=== PATIENT | female | born 2005 | race Caucasian/White ===

== ENCOUNTER 2024-10-26 09:53 | Outpatient (AMB) | payer OTHER, SELFPAY ==
--- NOTE | 2024-10-26 10:08 | MHC.PC.OV ---
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 Intake Note: New pt establish care Industrial Safety Engineer Required: No Is last menstrual period known: Yes Last menstrual period: 10/26/24 Post menopausal: No Patient : No Allergies No Known Allergies Allergy (Verified 10/26/24 10:13) Medication List - Last Reconciled 10/26/24 by Ramirez Jurado MD amitriptyline 20 mg PO DAILY lamotrigine 150 mg PO DAILY levonorgestrel (Mirena) intrauterine norethindrone ac-eth estradiol 1-20 mg-mcg (Aurovela) 1 tab PO DAILY Tobacco use date assessed: 10/26/24 Dental Screening Dental Screen Date: 10/26/24 Did you have a dental visit in the last 12 months?: Yes Did you have a dental problem in the last 6 months where you did not have access to dental care?: No Was dental information given to patient?: No HPI 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 ?? Prior PCP:?Sheri Wallace at [facility] in [place] Last office visit/CPE:? 2020 Acute issue(s):? IBS sxs. Needs New GI specialist (Had [facility]). ?? PMHx:? IBS, Bipolar disorder Anxiety/Depression. Has PSY. & Therapist. Has STAGE SETTINGS PAINTER through [facility] (Paty Walker) SurgHx:?Colonoscopy FHx:? Dad: HLD. Mom: Breast CA. Brother & Sister w/ Asthma. Brother: PTSD, Schizophrenia SocHx:? Nonsmoker. EtOH None. MJ Daily. No other Drugs. HPI Comments History of Present Illness Details Documentation assistance for Ramirez Jurado MD, was provided by Dm Gannon,? Tub Chucker on 10/26/2024 at 10:37 AM EST. I, Dr. Jurado, have read, observed, and verified documentation. ?? PFSH Medical History (Updated 10/26/24 @ 10:47 by Dm Gannon) Bipolar 1 disorder Depression Anxiety IBS (irritable bowel syndrome) Family History (Updated 10/26/24 @ 10:22 by Aliyah Weldon [facility]) Brother FH: mental illness Asthma Sister Asthma Father High blood cholesterol Alcohol abuse Paternal Grandmother High blood cholesterol Paternal Grandfather Pacemaker Mother Breast cancer Social History Housing: House Patient Tobacco Use Status: Never used Tobacco e-Cigarette/Vaping Use: Never Used service: No Current occupational status: employed Current occupation: warehouse clerk Cognitive needs: No Hearing needs: No Vision needs: Yes Female Reproductive History Menstrual Date of last menstrual period: 10/26/24 Questionnaire PHQ-9 Over the last 2 weeks, how often have you been bothered by any of the following problems? 1. Little interest or pleasure in doing things: several days 2. Feeling down, depressed, or hopeless: several days 3. Trouble falling or staying asleep, or sleeping too much: several days 4. Feeling tired or having little energy: several days 5. Poor appetite or overeating: several days 6. Feeling bad about yourself - or that you are a failure or have let yourself or your family down: not at all 7. Trouble concentrating on things, such as reading the newspaper or watching television: not at all 8. Moving or speaking so slowly that other people could have noticed. Or the opposite - being so fidgety or restless that you have been moving around a lot more than usual: not at all 9. Thoughts that you would be better off or of hurting yourself in some way: not at all Total score: 5 Depression Screening Interpretation: Positive Depression Screening Follow-up: In treatment Depression Screening Done: Yes 58256 - PHQ-9 Billing: Yes Source: Developed by Drs. Matt Torres, Ladi Bertrand, Rm Dyer and colleagues, with an educational tyler from [employer]. Thrive Questionnaire Date Thrive assessed: 10/26/24 I am a: Patient What is your living situation today?: I have a steady place to live Within the past 12 months, did the food you bought not last and you didn't have the money to get more?: Never true Within the past 12 months, did you worry whether your food would run out before you got money to buy more?: Never true Do you have trouble paying for medicines?: No Do you have trouble getting transportation to medical appointments?: No Do you have trouble paying your heating and electricity bill?: No Do you have trouble taking care of your child, family member or friend?: No Do you have trouble with day-to-day activities such as bathing, preparing meals, shopping, managing finances, etc.?: No Are you currently unemployed and looking for a job?: No Are you interested in more education?: I choose not to answer this question Please select the resources that you would like help with: None Currently or been in a relationship where the following occur: I choose not to answer THRIVE Score: 0 AUDIT C Alcohol Use Questionnaire (AUDIT-C) 1. How often do you have a drink containing alcohol?: Monthly or less 2. How many drinks containing alcohol do you have on a typical day when you are drinking?: 1 or 2 3. How often do you have six or more drinks on one occasion?: Never Total Score: 1 Score Reviewed/Action Taken: Yes BRYAN-7 AMB Questionnaire BRYAN-7 Date BRYAN - 7 assessed: 10/26/24 Feeling nervous, anxious, or on edge: 1 = Several days Not being able to stop or control worryin = Several days Worrying too much about different things: 1 = Several days Trouble relaxin = Not at all Being so restless that it is hard to sit still: 0 = Not at all Becoming easily annoyed or irritable: 0 = Not at all Feeling afraid as if something awful might happen: 0 = Not at all Total BRYAN-7 score (0-4 normal; 5-9 mild; 10-14 moderate; 15-21 severe): 3 Source: Developed by Drs. Matt Torres, Ladi Bertrand, Rm Dyer and colleagues, with an educational tyler from [employer]. BRYAN-7 Assessment Billing BRYAN-7 Assessment Tool: BRYAN-7 Assessment 31129 Review of Systems Const Denies chills, Denies fatigue, Denies fever(s), Denies headache(s) and Denies weakness ENT Denies dizziness and Denies headache(s) Card Denies chest pain, Denies lightheadedness, Denies dyspnea and Denies other (Palpitations) Resp Denies cough, Denies dyspnea, Denies wheezing and Denies other ( shortness of breath) Musc Denies numbness and Denies tingling Neuro Denies dizziness, Denies headache(s), Denies numbness, Denies tingling, Denies paresthesias and Denies weakness Psych Denies anxiety and Denies depression Endo Denies fatigue Aller/Immun Denies wheezing Physical exam (Primary Care) Vital Signs: Last Vital Signs Temp 97.9 F 10/26/24 10:22 Pulse 69 10/26/24 10:22 Resp 14 10/26/24 10:22 BP 130/80 10/26/24 10:22 Pulse Ox 98 10/26/24 10:22 Oxygen Delivery Method Room Air 10/26/24 10:22 BMI result Body Mass Index 40.9 Tobacco/Smoking Status: Tobacco use Status Tobacco use date assessed 10/26/24 10/26/24 10:23 Patient Tobacco Use Status Never used Tobacco 10/26/24 10:23 e-Cigarette/Vaping Use Never Used 10/26/24 10:23 PHQ-9: PHQ-9 Score PHQ-9: Total score 5 10/26/24 10:23 Depression Screening Interpretation: Positive Depression Screening Follow-up: In treatment Thrive Assessment: Date of Thrive Assessment Date Thrive assessed 10/26/24 10/26/24 10:12 Currently or been in a relationship where the following occur: I choose not to answer Const General: no acute distress and well developed Nutritional Appearance: obese morbidly obese Orientation/consciousness: patient oriented x3 HENMT Head: Yes normocephalic and Yes atraumatic Eyes General: appearance normal, both eyes and all related structures Pupils: Equal, round and reactive pupils present EOM: EOMs intact bilaterally Resp Effort & Inspection: normal respiratory effort Auscultation: clear to auscultation bilaterally Cardio Rate: regular rate Rhythm: regular rhythm Heart sounds: S1 normal heart sound present, S2 normal heart sound present, no gallops, no murmurs and no rubs Neuro General: patient oriented x3 and gait normal Cranial nerves: Yes Equal, round and reactive pupils present Psych Affect: normal affect Coding Level of Care Code New Pt Level 3 (04886) Diagnoses Bipolar 1 disorder F31.9 Depression with anxiety F41.8 IBS (irritable bowel syndrome) K58.9 Screening for STD (sexually transmitted disease) Z11.3 Laboratory exam ordered as part of routine general medical examination Z00.00 Additional Codes BRYAN-7 Assessment Billing - BRYAN-7 Assessment Tool: BRYAN-7 Assessment 02583 ([id number]) PHQ-9 - 13970 - PHQ-9 Billing: Yes ([id number]) Assessment & Plan Assessment & Plan (1) Bipolar 1 disorder: Code(s): F31.9 - Bipolar disorder, unspecified Category: Medical Plan: Patient?has?a?psychiatrist?and?therapist. She?notes?that?she?is?rather?stable?on?lamotrigine?and?will?continue?this.??Also?on?amitriptyline?though?this?is?primarily?for?her?IBS?symptoms. Continue?current?medications?and?follow-up?with?psychiatrist?and?therapist?as?recommended (2) Depression with anxiety: Code(s): F41.8 - Other specified anxiety disorders Category: Medical Plan: As?above (3) IBS (irritable bowel syndrome): Code(s): K58.9 - Irritable bowel syndrome, unspecified Category: Medical Plan: History?of?IBS?and?patient?has?been?taking?amitriptyline. She?would?like?a?referral?to?a?new?couture dressmaker?as?she?had?been?seeing?a?pediatric?specialist?at?[facility]?previously. Referred?to?[facility]?gastroenterology Patient requests?that?I?cover?amitriptyline?until?she?has?not?use?specialists.??She?has?just?received?a?new?prescription?but?I?can?cover?this?medication?when?she?needs?her?next?refill (4) Screening for STD (sexually transmitted disease): Code(s): Z11.3 - Encounter for screening for infections with a predominantly sexual mode of transmission Category: Medical Plan: Labs?ordered (5) Laboratory exam ordered as part of routine general medical examination: Code(s): Z00.00 - Encounter for general adult medical examination without abnormal findings Category: Medical Plan: Check?labs Orders: Orders Comprehensive [place]. Panel Fast Today Z00.00 - Encounter for general adult medical examination without abnormal findings Microalbumin, Random (w Creat) Today I10 - Essential (primary) hypertension Lipid Panel Today Z00.00 - Encounter for general adult medical examination without abnormal findings Vitamin B12 and Folate Today E53.8 - Deficiency of other specified B group vitamins Vitamin D 25-OH Total Today E55.9 - Vitamin D deficiency, unspecified HIV Ab/Ag Today Z11.3 - Encounter for screening for infections with a predominantly sexual mode of transmission Syphilis Screen Today Z11.3 - Encounter for screening for infections with a predominantly sexual mode of transmission Complete Blood Count Auto Diff Today Z00.00 - Encounter for general adult medical examination without abnormal findings TSH reflex Free T4 Today Z00.00 - Encounter for general adult medical examination without abnormal findings UA and rflx microscopic Today Z00.00 - Encounter for general adult medical examination without abnormal findings CT NG by PCR Today Z11.3 - Encounter for screening for infections with a predominantly sexual mode of transmission Hepatitis B,C Profile Today Z11.3 - Encounter for screening for infections with a predominantly sexual mode of transmission
[2024-10-26 10:22] VITALS: BP 130/80; PULSE 69; RESP 14; TEMP 36.6; O2SAT 98; BMI 40.9
--- OUTSIDE RECORDS SUMMARY | 2024-10-26 10:38 | XMS_ITS | Encounter Summary ---
Author Organization [facility] Address [address] [place] [id number] Phone Care Team Providers Care Pot Puller Name Role Phone Isabelle Wallace NP Primary Care Provider [phone] Reason for Visit * Reason Comments Med Refill Encounter Details Date Type Department Care Team (Late st Contact Info) Description 12/18/2018 [facility]ill [facility] [address] [place] [id number] Isabelle Wallace NP [address] [place] [address] Dysmenorrhea in adolescent Social History Tobacco Use Types Packs/Day Years Used Date Smoking Tobacco: Never Assessed Comments Unknown Sex and Gender Information Value Date Recorded Sex Assigned at Female 10/09/2019 3:05 PM EST Legal Sex Female 6:26 PM EDT Gender Identity Female 10/09/2019 3:05 PM EST Sexual Orientation Straight 10/09/2019 3: 05 PM EST documented as of this encounter Plan of Treatment Not on file documented as of this encounter Visit Diagnoses Diagnosis Dysmenorrhea in adolescent documented in this encounter Care Teams Pot Puller Relationship Specialty Start Date End Date Isabelle Wallace NP [address] [place] [address] PCP - General Pediatrics 09/22/18 07/05/24 documented as of this encounter
--- OUTSIDE RECORDS SUMMARY | 2024-10-26 10:38 | XMS_ITS | Encounter Summary ---
Author Organization [facility] Address [address] [place] [id number] Phone Care Team Providers Care Microsoft Crm Developer Name Role Phone Isabelle Wallace NP Primary Care Provider [phone] Encounter Details Date Type Department Care Team (Late st Contact Info) Description 01/25/2018 Conversion [facility]counter [facility] [address] [address] Dori Lazaro MD [address] [place] [address] Social History Tobacco Use Types Packs/Day Years [...] documented as of this encounter Visit Diagnoses Not on filedocumented in this encounter Care Teams Microsoft Crm Developer Relationship Specialty Start Date End Date Isabelle Wallace NP [address] [place] [id number] PCP - General Pediatrics 09/22/18 07/05/24 documented as of this encounter
--- OUTSIDE RECORDS SUMMARY | 2024-10-26 10:38 | XMS_ITS | Clinical Summary ---
Author Organization [facility] Address [address] [place] [id number] Phone Care Team Providers Care Stockroom Worker Name Role Phone Unavailable Primary Care Provider Unavailabl e Allergies No known active allergies Medications Levonorgestrel (MIRENA, 52 MG, IU) by Intrauterine route. Active dicyclomine 10 MG capsule 10 mg 2 (two) times a day. 2 Active amitriptyline 10 MG tablet TAKE 1 TABLET BY MOUTH EVERYDAY AT BEDTIME 2 Active citalopram 20 MG tabletIndication s:Anxiety and depression Take 1 tablet (20 mg total) by mouth every morning. 90 tablet 2 Active Additional Information Patient not taking.Reported on 07/22/2022 traZODone 50 MG tabletIndication s:Sleep difficulties TAKE 1 TABLET BY MOUTH EVERY DAY AT NIGHT 90 tablet 3 Active hydrOXYzine 25 MG tabletIndication s:Anxiety and depression TAKE 1 TABLET BY MOUTH EVERY DAY AT NIGHT 30 tablet 3 Active LAMOTRIGINE PO Take by mouth. Active Active Problems Problem Noted Date Diagnosed Date Chronic headaches 01/01/2023 Marijuana use 07/24/2022 Nicotine dependence 07/24/2022 Wears glasses 07/22/2022 Overview (07/22/2022): Goes to [employer] IBS (irritable bowel syndrome) 12/14/2021 Assessment & Plan (07/22/2022 3:47 PM EST): Colonoscopy. H pylori. Disrupted sleep-wake cycle 11/02/2021 Assessment & Plan (12/15/2021 2:29 PM EDT): Will discuss with CARLINE safety of increasing trazodone given that she is not on multiple serotonergic agents. Assessment & Plan (11/02/2021 11:25 AM EST): Will discuss with CARLINE whether it would be safe to add trazodone to Celexa. Diarrhea 08/10/2021 Overview (01/01/2023): GI Sep 2021 - likely IBS-D, fecal calprotectin, if elevated will need scope 12/29:seen in follow up by GI. Colonoscopy, h pylori. Treated. Urea breath test as test of cure. Calprotectn 27. Amitriptiline 20 mg nightly. Fodmap/ibs diet. F/u 6 months Assessment & Plan (10/03/2021 7:22 PM EST): Started dicyclomine. Needs to schedule f/u with drip box tender and collect specimen for fecal calprotectin. Assessment & Plan (09/05/2021 7:04 PM EST): Asked our office to reach out again to GI regarding an appt. Assessment & Plan (08/10/2021 5:01 PM EST): Will obtain labs to look for inflammatory cause. F/u with results once received, likely will refer to GI. Vascular thoracic outlet syndrome 03/31/2021 Overview (03/31/2021): Right - [facility] referred to PT 03/28 Assessment & Plan (07/24/2022 8:40 AM EST): Ongoing sx. I advised pt attend [facility] walk in clinic for further evaluation Anxiety and depression 11/12/2020 Assessment & Plan (12/15/2021 2:29 PM EDT): Will make referral to [facility] for medication management. Assessment & Plan (11/02/2021 11:24 AM EST): Continue Celexa, and continue working on locating a therapist. Will f/u in approx 4 weeks. Assessment & Plan (10/03/2021 7:23 PM EST): Tolerated the cross taper, not significantly worse coming off of the sertraline. Will increase citalopram to 20 mg and f/u in 4 weeks, sooner with concerns. Sarah will continue to look for a therapist. Assessment & Plan (09/05/2021 7:04 PM EST): Not experiencing much benefit from sertraline despite titrating up to 125 mg. Decided to cross taper off sertraline and start citalopram. First week to take 100 mg sertraline (1 tab) and 5 mg citalopram (1/2 tab). Second week to take 50 mg sertraline (1/2 tab) and 10 mg citalopram (1 tab). Will f/u for med check in 3 weeks, sooner with concerns. May try 50 mg of hydroxyzine for symptoms. Assessment & Plan (08/13/2021 1:03 PM EST): Will not adjust meds at this point - discussed with Sarah I don't believe there is any evidence that any of the SSRIs are more likely to gain weight than others, but will consult the literature and f/u with her when I f/u with lab results. Assessment & Plan (06/11/2021 11:40 AM EDT): Sarah has a lot going on personally at the moment with her family, and also had a period this month, both of which may be contributing to her feeling more emotional. Overall continues to benefit from sertraline. We agree to her meeting with Angelica Walker tomorrow, keeping the dose at 100 mg and following up with a med check in 1 month, she can reach out sooner with concerns. Assessment & Plan (04/27/2021 12:56 PM EDT): Continues to do well on sertraline 100 mg. Will keep at this dose for now and f/u in 4 weeks. Discussed panic attacks would also be an appropriate time to try the hydroxyzine. Assessment & Plan (04/12/2021 4:26 PM EDT): Sarah looked great today. I would like her to continue the sertraline at 100 mg for another 2 weeks, and then will reevaluate whether a further increase is needed. Given the nighttime anxiety and difficulty sleeping, we can trial hydroxyzine 25 mg prn at night. My goal is not for her to use this as a sleep aid, but it may have that added benefit if it helps with the anxiety and has the side effect of making her tired. Assessment & Plan (03/29/2021 2:53 PM EDT): Will plan to increase sertraline to 100 mg. I am glad Sarah is experiencing some benefit for her anxiety. It does not seem that the sertraline is making her depression worse, but if she does find a correlation of worsening depression with increasing the sertraline, she will let me know and we will consider trying a different medication. F/u planned for 2 weeks. Also discussed sleep hygiene, avoiding screens/phone before bed and making a bedtime routine. Assessment & Plan (02/22/2021 12:08 PM EDT): Some initial improvement in both mood and anxiety. Will continue sertraline at 25 mg for another week, then increase to 50 mg. Will f/u after she has been on 50 mg for 2 weeks, sooner with concerns. Assessment & Plan (02/11/2021 2:42 PM EDT): Will start sertraline 12.5 mg x 1 week, then if tolerated increase to 25 mg. Reviewed black box warning for increased suicidal thought in children and adolescents with SSRI use; if this occurs or any worsening of symptoms, agrees to notify me. Continue therapy with Angelica Walker, and f/u with me in 2 weeks for med check. As nightmares are not excessive/intrusive at this point will not start prazosin, but can revisit if this becomes a concern for Sarah. Assessment & Plan (11/12/2020 12:54 PM EST): Sarah says she has expressed to parents several time her desire to see a therapist and is told they will look into it. I reviewed availability of Angelica Walker in our office - she was hesitant at first due to privacy concerns and I reviewed that confidentiality with Angelica is no different than with any other therapist. I suggested it might be helpful to leave the office today already having made an appointment with Angelica as she has not been able to establish with an outpatient despite her desire. She agrees and we scheduled an appointment. Family disruption due to divorce or legal separa tion 10/09/2019 Assessment & Plan (10/09/2019 3:05 PM EST): Encouraged Sarah to consider talking to someone about the changes and stress. Made her and dad aware of availability of KENA Ireland here in our office. Dysmenorrhea in adolescent 09/22/2018 Assessment & Plan (11/12/2020 12:54 PM EST): Doing well with IUD. Assessment & Plan (10/09/2019 3:06 PM EST): Improved with Nexplanon. Assessment & Plan (09/22/2018 12:46 PM EST): It is not clear to me whether Sarah has a history of migraine with aura. She describes some lines in her vision, blurred vision, and tingling in arms with her headaches. Out of caution, will start on progestin-only pill but asked Sarah and dad to discuss with neuro if they feel she would be a candidate for an estrogen-containing pill. If so and symptoms are not well controlled, will consider change to a combined OCP. Reviewed how to take, will f/u in 3 months, sooner with concerns. Chiari I malformation 11/26/2017 Overview (09/22/2018): mild, likely incidental finding on MRI 11/23 Intractable migraine without aura and with status migrainosus 11/26/2017 Overview (09/22/2018): 05/24 - ophthalmology exam for ongoing headaches; benign exam, cycloplegic refraction greatly different from current rx, large difference between eyes; difference is so great that it may be an explanation for headaches 11/23 [facility] admit migraine. 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 Pseudotumor less likely but remains on differential, oupt dilated exam with Dr. Nix negative for papilledema. F/u with outpt neuro at [facility], started on Topamax. Assessment & Plan (10/09/2019 3:04 PM EST): Follow up with neuro as planned. Assessment & Plan (09/22/2018 12:44 PM EST): Family will call [facility] neuro for f/u. I told dad it would be appropriate to ask if the Topamax could be increased prior to the appointment. Morbid obesity with BMI of 40.0-44.9, adult 12/2017 Overview (09/22/2018): Endocrinology 11/22 elevated triglycerides and insulin secondary to weight and poor diet. Recommended referral to weight management program which she declined. F/u with endo prn only Assessment & Plan (10/09/2019 3:03 PM EST): Down 20 lbs since last year, more active and eating a healthier diet. Keep up the good work! Assessment & Plan (09/22/2018 12:44 PM EST): Weight down 22 lbs since last November. Encouraged Sarah to work in increasing physical activity and eating more whole foods (less processed and carbs) as I think this would go a long way in helping her feel better with her headaches and overall. Hyperinsulinemia 09/11/2017 Mixed hyperlipidemia 09/11/2017 Resolved Problems Problem Noted Date Diagnosed Date Resolved Date Neck pain 11/26/2017 11/12/2020 Overview (09/22/2018): 03/24 - [facility] - completed PT. Due to chronic back and neck pain, will refer to rheumatology. Recommend referral to neuro for chronic RAYGOZA. 05/25 - Rheumatology - neck pain and RAYGOZA possibly post-concussive. Spondyloarthritis or primary pain disorder need to be in differential. Labs. Rx for diclofenac and cyclobenzaprine. Continue PT, f/u in 6 wks. Encounters Date Type Department Care Team Description 07/01/2024 2:27 PM EDT - 08/07/2024 4:45 AM EST Hospital Encounter [facility] - Patient Ping Discharge Disposition: ED Dismiss - Never Arrived from Last 3 Months Immunizations Immunization Administration Dates Next Due DTaP 04/21/2008, 4,2003,05/17,2003 Hep A, ped/adol 09/22/2018,09/11/2017 Hep B, ped/adol 2003,2003,2003 Hib (PRP-T) 05/09/2004,2003,2003 IPV 04/21/2008, 4,2003,03/16 Influenza, injectable, quadrivalent 07/27/2014,0 05/20/2012,04/30/2010 Influenza, injectable, quadr ivalent, preservative free 07/22/2022,11/09/2020,10/08/2019,07/06,05/01/2011 Influenza, injectable, triva lent, preservative free 10/10/2004,06/29/2004 Influenza, intranasal, quadrivalent 09/22/2018,1 10/09/2014 MMR 01/27/2004 MMRV 01/14/2007 Meningococcal Conj (Menactra) MCV4P 10/08/2019,1 09/26/2013 Pneumococcal Conjugate 02/20/2005,2002,2003,03/16 Tdap 07/27/2014 Varicella 04/21/2008,01/27/2004 Family History Medical History Relation Name Comments Asthma Brother Jose Hyperlipidemia Father Hyperlipidemia Father's Brother No Known Problems Maternal Grandmother No Known Problems Mother Coronary artery disease Paternal Grandfather Hyperlipidemia Paternal Grandfather Aortic aneurysm Paternal Grandmother Hyperlipidemia Paternal Grandmother Relation Name Status Comments Brother Jose Alive Father Alive Father's Brother Alive diagnosed w ith Hypercholesteremia Maternal Grandfather Alive Brain t umor Maternal Grandmother Alive Mother Alive healthy age: 48 Paternal Grandfather Alive Paternal Grandmother (Age 56) Sister Jourdan Alive Social History Tobacco Use Types Packs/Day Years Used Date Smoking Tobacco: Never Assessed Hunger/Food Answer Date Recorded In the last 12 months, did y ou or your family ever eat less than you felt you should because there wasn't enough money for food? No 07/20/2022 Stable Housing Answer Date Recorded Are you worried that in the next 2 months you may not have stable housing? No 07/20/2022 Transportation Concerns Answer Date Rec orded In the last 12 months, have you or your family ever had to go without healthcare because you didn't have a way to get there? No 07/20/2022 Hazards in Home Answer Date Recorded Think about the place you li ve. Do you have problems with any of the following? Pests (mice or roaches), mold, no/not working smoke detectors, water leaks, no window guards. No 2021 Financing Utilities Answer Date Recorde d In the last 12 months, has t he electric, gas, oil, or water company threatened to shut off your services in your home? No 07/20/2022 Safety at Home Answer Date Recorded Are you or your family worried about feeling saf e in your home? No 07/20/2022 Outside Support Answer Date Recorded Do you feel that you need mo re support from other people or programs to help you care for yourself or your family? No 07/20/2022 Understanding Health Concerns Answer Da te Recorded Do you need help understandi ng your or your child's healthcare needs (diagnosis, medications, plan, etc.)? No 07/20/2022 Financing Health Concerns Answer Date R ecorded In the last 12 months, was t here a time when your child needed to see a doctor or get medications or supplies but could not because of cost? No 07/20/2022 Missing School or Work Answer Date Jorge rded Did you or your child miss s chool or work because of a health problem that could have been avoided? No 07/20/2022 Comments No Sex and Gender Information Value Date Recorded Sex Assigned at Female 10/09/2019 3:05 PM EST Legal Sex Female 6:26 PM EDT Gender Identity Female 10/09/2019 3:05 PM EST Sexual Orientation Straight 10/09/2019 3: 05 PM EST Last Filed Vital Signs Vital Sign Reading Time Taken Comments Blood Pressure 138/78 07/22/2022 3:27 PM EST Pulse 65 11/26/2021 6:20 PM EDT Temperature 37.2 ??C (99 ??F) 12/11/2023 1:41 PM EDT Respiratory Rate - - Oxygen Saturation 97% 11/26/2021 6:20 PM EDT Inhaled Oxygen Concentration - - Weight 117 kg (257 lb 3.2 oz) 12/11/2023 1:41 PM EDT Height 168 cm (5' 6.14 ) 07/22/2022 3:27 PM EST Body Mass Index 41.34 07/22/2022 3:27 PM EST Plan of Treatment Health Maintenance Due Date Last Done Comments HPV Vaccines (1 - 3-dose series) 2018 Men B Vaccine (1 of 2 - Standard) 2019 Influenza Vaccines (#1) 2024 07/22/20, 11/09/2020, 10/08/2019, Additional history exists COVID-19 Vaccine (3 - 2023-2 5 season) 2024 01/19/2021, 12/29/2020 DTaP,Tdap,and Td Vaccines (7 - Td or Tdap) 07/27/2024 07/27/2014, 04/21/2008, 05/09/2004, Additional history exists Hepatitis B Vaccines Completed 2003, 2003, 2003 HIB Vaccines Completed 05/09/2004, 03/2003, 2003 Pneumococcal Vaccine Completed 02/20/2005, 2003, 2003, Additional history exists MMR Vaccines Completed 01/14/2007, 01/27/2004 IPV Vaccines Completed 04/21/2008, 10/09, 2003, Additional history exists Varicella Vaccines Completed 04/21/2008, 0 01/14/2007, 01/27/2004 Hepatitis A Vaccines Completed 09/22/2018, 09/11/19 18 Meningococcal Vaccine Completed 10/08/2019, 014 Procedures * Due to [place] [employer] law, this organization might not be sharing sensitive test results. Procedure Name Priority Date/Time Associated Diagnosis Comments CHLAMYDIA AND GONORRHEA, AMPLIFIED Routine 07/22/2022 4:45 PM EST Well adult exam from Last 3 Months or Most Recently Relevant to Health Maintenance Results * Due to [facility] law, this organization might not be sharing sensitive test results. * Chlamydia and Gonorrhoea, Amplified (07/22/2022 4:45 PM EST) Chlamydia Trachomatis, DNA Probe NEGATIVE (NEG) [facility] Comment: No Chlamydia Trachomatis RNA detected in this patient's sample ? (REFERENCE RANGE/NORMAL VALUE: NOT DETECTED) ? Note: This test uses api product manager- mediated amplification method to detect rRNA from C. Trachomatis URINE GC AMP PROBE NEGATIVE (NEG) [facility] Comment: No Neisseria Gonorrhoeae RNA detected in this patient's sample ? (REFERENCE RANGE/NORMAL VALUE: NOT DETECTED) ? NOTE: This test uses api product manager-mediated amplification method to detect rRNA from N.Gonorrhoeae. A negative result does not preclude infection. In the case of a negative urine result, testing of an endocervical(female) or urethral (male) specimen is recommended if there is high clinical suspicion of infection. Due to very high sensitivity of Nucleic Acid Amplification Test, false positive results may occur. Therefore, specimen handling is extremely important. In patients in whom the disease is unlikely, additional sample for testing should be considered after an initial positive result. The performance characteristics of this test have not been evaluated in children. The Aptima Combo2 assay is not intended for the evaluation of suspected sexual abuse or for other medico-legal indications. The ordering provider should assess if the patient had consensual sex without risk of sexual abuse. Consult the [facility] if needed. Contact phone number . Therapeutic failure or success cannot be determined with the Aptima Combo2 assay since nucleic acid may persist following appropriate antimicrobial therapy. The Centers for Disease Control and Prevention (CDC) recommends confirmatory retesting using culture or a different nucleic acid amplification test when positive results occur, if indicated. Testing performed or reported by [facility], a Service of [facility], [place] [address] Balaji Dolan MD, Overhead Cleaner Maintainer [facility]# [id number] Urine (Urine) 07/22/2022 4:4 5 PM EST 07/23/2022 8:35 AM EST us Nevaeh York MD LAB MICROBIOLOGY - GENERAL ORDER TAMIA Final Result [facility] from Last 3 Months or Most Recently Relevant to Health Maintenance Insurance [facility]
--- OUTSIDE RECORDS SUMMARY | 2024-10-26 10:38 | XMS_ITS | Encounter Summary ---
Author Organization [facility] Address [address] [place] [phone] Phone Care Team Providers Care Engineering Laboratory Technician Name Role Phone Isabelle Wallace NP Primary Care Provider [phone] Reason for Visit * Reason Comments Med Refill Encounter Details Date Type Department Care Team (Late st Contact Info) Description 03/03[facility] [address] [address] Isabelle Wallace NP [address] [place] [address] Anxiety Social History Tobacco Use Types Packs/Day Years Used Date Smoking Tobacco: Never Assessed Hunger/Food Answer Date Recorded In the last 12 months, did y ou or your family ever eat less than you felt you should because there wasn't enough money for food? No 06/13/2020 Stable Housing Answer Date Recorded Are you worried that in the next 2 months you may not have stable housing? No 06/13/2020 Transportation Concerns Answer Date Rec orded In the last 12 months, have you or your family ever had to go without healthcare because you didn't have a way to get there? No 06/13/2020 Hazards in Home Answer Date Recorded Think about the place you li ve. Do you have problems with any of the following? Pests (mice or roaches), mold, no/not working smoke detectors, water leaks, no window guards. No 2019 Financing Utilities Answer Date Recorde d In the last 12 months, has t he electric, gas, oil, or water company threatened to shut off your services in your home? No 06/13/2020 Safety at Home Answer Date Recorded Are you or your family worried about feeling saf e in your home? No 06/13/2020 Outside Support Answer Date Recorded Do you feel that you need mo re support from other people or programs to help you care for yourself or your family? Yes 06/13/2020 Understanding Health Concerns Answer Da te Recorded Do you need help understandi ng your or your child's healthcare needs (diagnosis, medications, plan, etc.)? No 06/13/2020 Financing Health Concerns Answer Date R ecorded In the last 12 months, was t here a time when your child needed to see a doctor or get medications or supplies but could not because of cost? No 06/13/2020 Missing School or Work Answer Date Jorge rded Did you or your child miss s chool or work because of a health problem that could have been avoided? No 06/13/2020 Comments No Sex and Gender Information Value Date Recorded Sex Assigned at Female 10/09/2019 3:05 PM EST Legal Sex Female 6:26 PM EDT Gender Identity Female 10/09/2019 3:05 PM EST Sexual Orientation Straight 10/09/2019 3: 05 PM EST documented as of this encounter Plan of Treatment Not on file documented as of this encounter Visit Diagnoses Diagnosis Anxiety Anxiety state, unspecified documented in this encounter Care Teams Engineering Laboratory Technician Relationship Specialty Start Date End Date Isabelle Wallace NP [address] [facility] [place] [address] PCP - General Pediatrics 09/22/18 07/05/24 documented as of this encounter
--- OUTSIDE RECORDS SUMMARY | 2024-10-26 10:38 | XMS_ITS | Encounter Summary ---
Author Organization [facility] Address [address] [place] [phone] Phone Care Team Providers Care Smoke Inspector Name Role Phone Isabelle Wallace NP Primary Care Provider [phone] Reason for Visit * Reason Comments Med Refill Encounter Details Date Type Department Care Team (Late st Contact Info) Description 05/07/2019 [facility] - [address] [address] Isabelle Wallace NP 7 [place] [address] Dysmenorrhea in adolescent Social History Tobacco Use Types Packs/Day Years Used Date Smoking Tobacco: Never Assessed Comments Unknown Sex and Gender Information Value Date Recorded Sex Assigned at Female 10/09/2019 3:05 PM EST Legal Sex Female 6:26 PM EDT Gender Identity Female 10/09/2019 3:05 PM EST Sexual Orientation Straight 10/09/2019 3: 05 PM EST documented as of this encounter Miscellaneous Notes * Telephone Encounter - Isabelle Wallace NP - 05/07/2019 9:22 AM EDT Reviewed and sent * Telephone Encounter - Lea Parker MA - 05/07/2019 7:37 AM EDT Refill request for OCP Last [facility] was 09/22/18 Last refill was 02/15/19 #[phone] RF Please review and send if OK Thank you documented in this encounter Plan of Treatment Not on file documented as of this encounter Visit Diagnoses Diagnosis Dysmenorrhea in adolescent documented in this encounter Care Teams Smoke Inspector Relationship Specialty Start Date End Date [facility] [address] [facility] - [facility] 09/22/18 07/05/24 documented as of this encounter
--- OUTSIDE RECORDS SUMMARY | 2024-10-26 10:39 | XMS_ITS | Encounter Summary ---
Author Organization [facility] Address [address] [place] [phone] Phone Care Team Providers Care County Engineer Name Role Phone Isabelle Wallace NP Primary Care Provider [phone] Reason for Visit * Reason Onset Date Comments Med Refill Med Refill 10/03/2021 Encounter Details Date Type Department Care Team (Late st Contact Info) Description 09/28/2021 [facility] [address] [address] Isabelle Wallace NP [address] [place] [phone] Anxiety and depression Social History Tobacco Use Types Packs/Day Years [...] of this encounter Visit Diagnoses Diagnosis Anxiety and depression documented in this encounter Care Teams County Engineer Relationship Specialty Start Date End Date Isabelle Wallace [facility] [place] [address] PCP - General Pediatrics 09/22/18 07/05/24 documented as of this encounter
--- OUTSIDE RECORDS SUMMARY | 2024-10-26 10:39 | XMS_ITS | Encounter Summary ---
Author Organization [facility] Address [address] [place] [address] Phone Care Team Providers Care Ore Miner Blasting Name Role Phone Isabelle Wallace NP Primary Care Provider [phone] Reason for Visit * Reason Comments Med Refill Encounter Details Date Type Department Care Team (Late st Contact Info) Description 03/30/2022 [facility] [address] [address] Rocio Simeon NP Anxiety and depression Social History Tobacco Use [...] encounter Miscellaneous Notes * Telephone Encounter - Matt Chen MD - 04/01/2022 2:09 PM EDT No response from DOZ message yet. RX declined with message that needs to contact office. * Telephone Encounter - Lea Parker MA - 03/30/2022 9:21 AM EDT Refill request for Citalopram 20mg Last [facility] 11/09/20 Med check 12/14/21 Refilled 12/29/21 Overdue [facility] DOZ message sent Please review documented in this encounter Plan of Treatment Not on file documented as of this encounter Visit Diagnoses Diagnosis Anxiety and depression documented in this encounter Care Teams Ore Miner Blasting Relationship Specialty Start Date End Date Isabelle Wallace NP [address] [place] [address] PCP - General Pediatrics 09/22/18 07/05/24 documented as of this encounter
--- OUTSIDE RECORDS SUMMARY | 2024-10-26 10:39 | XMS_ITS | Encounter Summary ---
Author Organization [facility] Address [address] [place] [address] Phone Care Team Providers Care R And D Lab Technician Name Role Phone Isabelle Wallace NP Primary Care Provider [phone] Reason for Visit * Reason Comments Med Refill Encounter Details Date Type Department Care Team (Late st Contact Info) Description 04/01/2022 [facility] [address] [address] Shelbi Bourne MD [address] [place] [address] Sleep difficulties Social History Tobacco Use Types Packs/Day Years [...] encounter Miscellaneous Notes * Telephone Encounter - Salome Baker LPN - 04/01/2022 10:40 AM EDT Needs to call for an appt. Refused. documented in this encounter Plan of Treatment Not on file documented as of this encounter Visit Diagnoses Diagnosis Sleep difficulties documented in this encounter Care Teams R And D Lab Technician Relationship Specialty Start Date End Date Isabelle Wallace NP [address] [place] [address] PCP - General Pediatrics 09/22/18 07/05/24 documented as of this encounter
--- OUTSIDE RECORDS SUMMARY | 2024-10-26 10:39 | XMS_ITS | Data Portability ---
Author Organization [facility] [id number] Address [address] [place] [address] Care Team Providers Care Computer Systems Administrator Name Role Phone STEVIEBALBIR GOODMAN Extension Service Agent [phone] Assessment No assessment recorded. Plan of Treatment Reminders Order Date Submit Date Provider Last Modified By Organization Details Last Modified Time Details Appointments None recorded. Lab None recorded. Referral None recorded. Procedures None recorded. Surgeries None recorded. Imaging None recorded. Medication Orders cyclobenzap rine 10 mg tablet 2023 024 [facility]/Pharmacy #[id number], [address] [place], [address], 09:49:19 diclofenac sodium 75 mg tablet,harjit yed release 2023 024 [facility]/Pharmacy #[id number], [address] [place], [address], 09:49:21 cyclobenzap rine 5 mg tablet [address]/Pharmacy #[id number], [address] [place], [address], 09:19:41 Patient TargetsNo targets recorded. Patient Instructions Encounter Date Encounter Id Patient Instructions Last Modified By Organization Details Last Modified Time 02/13/2024 [id number] back care and preventing injuries: care instructions [email or web address] Not available 02/13/2024 10:17:55 getting back to normal after low back pain: care instructions [email or web address] Not available 02/13/2024 10:17:55 learning about relief for back pain dbezabih Not available 02/13/2024 10:17:55 You were seen today for back pain. Your symptom is due to back strain/spasm. Recommendation as below: - Ibuprofen 400 mg every 6 hours as needed for pain. - Flexeril 5 mg every 8 hrs as needed for muscle spasm. Start taking in the evening as it can make you feel drowsy. Do not take and drive or operate heavy machinery. - Avoid heavy lifting (limit to 10-15 lbs) - Return to urgent care if worsening symptoms or lack of improvement. [email or web address] Not available 02/13/2024 10:20:32 02/19/2024 [id number] Return to [facility] in 1 week for further evaluation to release work restrictions. [email or web address] Not available 02/19/2024 09:49:16 Reason for Referral None Reported. Problems Name Problem SNOMED Code Status Onset Date Resolution Date Notes Provider Name and Address Organization Details Recorded Time Anxiety 57428184 Active 2023 Tootie munguia PA - [facility] 4 09:46:11 Depressive disorder 92892224 Active 2023 JUAREZ Meza - [facility] 4 09:46:18 Bipolar disorder 21103610 Active 2023 JUAREZ Meza - [facility] 4 09:46:27 Low back pain 460615167 Active 2023 LAM GTZ MD [address] [place] [address] [place], [address] [facility] [place] - [facility] 4 10:17:01 Problem Notes None recorded. Medical Equipment None Reported. Allergies No known drug allergies Medications Name Sig Start Date Stop Date Status Note LastModified by Organization Details LastModified Time cyclobenzapri ne 10 mg tablet Take 1 tablet 3 times a day by oral route as needed for 5 days, for muscle relaxat ion. 2023 active Not Available Not Available Not Avai lable diclofenac sodium 75 mg tablet,delaye d release Take 1 tablet twice a day by oral route with meal(s) for 10 days, for low back muscle pain. 2023 active Not Available Not Available Not Avai lable cyclobenzapri ne 5 mg tablet Take 1 tablet 3 times a day by oral route as needed. 02/18 completed Not Available Not Available Not Available hydroxyzine HCl active Not Available Not Available Not Available lamotrigine active Not Available Not A vailable Not Available amitriptyline active Not Available Not Available Not Available trazodone active Not Available Not Rachael ilable Not Available Vitals Date Recorded Respiratory rate Body height Body mass index (BMI) Body weight Heart rate Oxygen saturation Oxygen saturation in Arterial blood by Pulse oximetry Pain severity - 0-10 verbal numeric rating [Score] - Reported Body temperature Systolic blood pressure Diastolic blood pressure Provider Name and Address Organization Details Last Updated DateTime 4 17 /min 167.64 cm 40.4 kg/m2 158153. 09 g 82 /min 98 % 98 % 7 98 [degF] 126 mm[Hg] 81 mm[Hg] Tootie Lewis [facility] [employer] 4 09:44:02 Date Recorded Body height Body mass index (BMI) Body weight Oxygen saturation Oxygen saturation in Arterial blood by Pulse oximetry Pain severity - 0-10 verbal numeric rating [Score] - Reported Heart rate Respiratory rate Body temperature Systolic blood pressure Diastolic blood pressure Provider Name and Address Organization Details Last Updated DateTime 4 167.64 cm 40.4 kg/m2 507689. 09 g 100 % 100 % 3 68 /min 18 /min 98.3 [degF] 138 mm[Hg] 90 mm[Hg] Myra Marrufo [facility] 4 09:18:20 Date Recorded Body height Body mass index (BMI) Body weight Oxygen saturation Oxygen saturation in Arterial blood by Pulse oximetry Heart rate Respiratory rate Body temperature Systolic blood pressure Diastolic blood pressure Provider Name and Address Organization Details Last Updated DateTime 4 167.64 cm 40.4 kg/m2 628057. 09 g 98 % 98 % 76 /min 18 /min 98.2 [degF] 119 mm[Hg] 81 mm[Hg] Myra Marrufo PA - [facility] 4 10:59:39 Social History Question Answer Notes LastModified by Organizat ion Details LastModified Time Tobacco Smoking Status Never Smoker JUAREZ Meza - [facility] 02/13/2024 09:42:26 What Is Your Level Of Alcohol Consumption? Occasional Information not available 02/13/2024 Are You Currently Employed? Yes Information not available 02/19/2024 Which Illicit Or Recreational Drugs Have You Used? Marijuana Information not available 02/13/2024 Do You Or Have You Ever Used E-cigarettes Or Vape? Current User Of Electronic Cigarettes Very Occasional Information not available 02/13/2024 Have You Had A Flu Shot This Season? No Information not available 02/13/2024 If No, Would You Like A Flu Shot Today? No Information not available 02/13/2024 Have You Had Direct Contact, Or Contact During Intimacy, With Monkeypox Rash, Scabs, Or Body Fluids From A Person With Monkeypox? No Information not available 02/13/2024 What Was The Date Of Your Most Recent Tobacco Screening? 02/13/2024 Information not available 02/13/2024 What Is Your Relationship Status? Single Information not available 02/19/2024 Do You Use Any Illicit Or Recreational Drugs? Yes Information not available 02/13/2024 Have You Recently Traveled Abroad? No Information not available 02/13/2024 Are You Currently In School? No Information not available 02/19/2024 Do You Or Have You Ever Used Any Other Forms Of Tobacco Or Nicotine? Yes Information not available 02/13/2024 Sex: Unknown Functional Status None recorded. Mental Status None recorded. Family History Relationship Description Onset Age of this Age Resolved Age Notes LastModified by Organization Details LastModified Time Father Hyperlipidem ia Not available 2023 09:41:50 Medical History No medical history recorded. Gynecological History Statement/Question Response Date of LMP 02/14/2024 Is there any chance of ? No LMP Definite Obstetrics History GPAL:G 0 P 0 0 0 0 Immunizations Vaccine Type Date Status Note Provider Nam e and Address Organization Details Recorded Time COVID-19, mRNA, LNP-S, PF, 30 mcg/0.3 mL dose 1 completed Tootie Marier null, PA - [facility] 02/13/2024 09:38:28 COVID-19, mRNA, LNP-S, PF, 30 mcg/0.3 mL dose 1 completed Tootie Marier null, PA - [facility] 02/13/2024 09:38:28 Tdap 4 completed Tootie Marier null, PA - [facility] 02/13/2024 09:38:28 Hep A, ped/adol, 2 dose 8 completed Tootie Marier null, PA - [facility] 02/13/2024 09:38:28 meningococcal MCV4P 0 completed Tootie Soer null, PA - [facility] 02/13/2024 09:38:28 meningococcal MCV4P 4 completed Tootie Joshua null, PA - [facility] 02/13/2024 09:38:28 Influenza, live, quadrivalent, intranasal 5 completed Tootie Marier null, PA - [facility] 02/13/2024 09:38:28 Influenza, split virus, quadrivalent, PF 0 completed Tootie Marier null, PA - [facility] 02/13/2024 09:38:28 Influenza, split virus, quadrivalent, PF 1 completed Tootie Marier null, PA - [facility] 02/13/2024 09:38:28 Influenza, split virus, quadrivalent, PF 2 completed Tootie Marier null, PA - [facility] 02/13/2024 09:38:28 Past Encounters Encounter ID Performer Location Encounter Start Date Encounter Closed Date Diagnosis/Indication Diagnosis SNOMED-CT Code Diagnosis ICD10 Code Diagnosis Note [id number] [address] [place] [id number] 03/17/2022 15:41:44 03/17/2022 16:42:56 [id number] LAM GTZ MD [id number] [address] 02/13/2024 09:16:16 02/13/2024 10:27:31 Low back pain 611801783 M54.50 Presented for acute LBP after shifting heavy boxes at work yesterday. Exam finding c/f back strain/spa sm. No red flag symptoms. [id number] AYDEE KEYS [place] [address] [address] 02/19/2024 08:59:06 02/19/2024 09:53:44 Spasm of muscle of lower back 2701121123 7589321 M62.830 MUSCU LOSKELETAL PAIN can be managed quite effectivel y with over the counter medication s and home treatments . When suffering from sprains, strains, contusions and other types of very painful but non-danger ous musculoske letal pain try the following: ?1. ACETAMINOP HEN 1,000 mg or 6 hours is needed for pain.?2. ICE and/or HEAT as needed for pain. Only use ice or heat for about 20 minutes at a time to prevent skin damage. You may switch from one to the other if it helps. Repeat frequently throughout the day as needed. Please do not fall asleep while using ice or heat as severe frostbite or barron can result. For sudden injuries it is best to use ice without heat for the first two days. You may then add heat as needed for pain control.?3. Topical medication such as Stop Pain feels good to rub on painful areas. Do not apply over broken skin.?4. Many musculoske letal injuries can benefit from gentle stretching or strengthen ing exercises. 5. Wear a back support brace while working to take the strain of of you back.?If pain does not improve please see your doctor or return to [facility] within one week. If your symptoms become severe or uncontroll ed or if you develop new concerning symptoms please go to the Emergency Department for evaluation and pain control. [id number] Jonny Holt DO [facility] [address] [address] 02/26/2024 10:51:51 02/26/2024 11:11:31 Low back pain 935256504 M54.50 cleared for work c no restrictio ns. pain is all better Health Concerns Section Related Observation LastModified by Organization Detai ls LastModified Time None Recorded Concern Status LastModified by Organization Details LastModified Time None Recorded Advance Directives Directive None Recorded Payers Encounter Date Sequence Insurance Name Policy Number Policy Parry Covered Member ID Parry Member ID Guarantor Name 03/17/2022 1 [facility] [id number] [employer] [id number] [employer] 02/13/2024 GENERIC WORKER'S COMP (MOVED TO HOLD) [employer] 02/19/2024 INTACT INSURANCE Generic Employer [employer] 02/26/2024 GENERIC WORKER'S COMP (MOVED TO HOLD) [employer] Notes Date Note Type Note Provider Name and Address Organization Details Recorded Time 02/13/2024 text/html Back Pain/Injury UCReported bypatient.Notes:Pre sented for LBP. Works at [employer]. Yesterday she was shifting a box on a pellet when the bottom boxes moved and while trying to keep the top box from falling she sustained injury to lower back. Boxes weigh 100-120 lbs. Now has LBP (R>L). Pain with standing and sitting. Had some radiation to lower extermity on right which has now resolved. Took Ibuprofen/Tylenol which has not helped. No LE weakness. LAM GTZ MD [address] [facility] [place], [address], [place] - [facility] 02/13/2024 11:33:33 02/19/2024 text/html 19 yo female her e for a f/u of her WC case. She presented on 02/11 for LBP. She works at [employer]. She was shifting a box on a pellet when the bottom boxes moved and while trying to keep the top box from falling she sustained injury to lower back. Boxes weigh 100-120 lbs. Now she has LBP (R>L). Pain with standing and sitting. Had some radiation to lower extermity on right which has now resolved. Took Ibuprofen/Tylenol which has not helped. No LE weakness.She states that the muscle relaxer previously prescribed was working but she only had 5 days worth. She still has pain with bending and straightening up and feels she can not lift heavy objects yet. She has been back at work with modified duty. AYDEE KEYS MD [address] [place], [address], [employer] 02/19/2024 09:52:11 02/26/2024 text/html PT WAS HERE LAST WEEK PT HAS A BACK INJURY AT WORK (WORKMANS COMP). no more pain now. all better. no numbness tingling legs. no fud. no urinary complaints. no abd pain. works at a [employer] Jon[employer] DO [place] [address] [place], [address], [email or web address] 02/26/2024 11:23:59 OBGyn Episode No OBEpisode recorded.
--- OUTSIDE RECORDS SUMMARY | 2024-10-26 10:39 | XMS_ITS | Encounter Summary ---
Author Organization [facility] Address [address] [place] [address] Phone Care Team Providers Care Adoption Social Worker Name Role Phone Isabelle Wallace NP Primary Care Provider [phone] Reason for Visit * Reason Comments Med Refill Encounter Details Date Type Department Care Team (Late st Contact Info) Description 05/21/2021 [facility] [address] [address] Isabelle Wallace NP [address] [place] [address] Anxiety and depression Social History Tobacco Use [...] Telephone Encounter - Isabelle Wallace NP - 05/23/2021 8:48 AM EDT Rx reviewed and sent * Telephone Encounter - Lea Parker MA - 05/21/2021 10:35 AM EDT Refill request for Sertraline, requesting a 90 day supply Last [facility] 11/09/20 Med check was 04/25/21 Upcoming on 05/29/21 Last refill 04/25/21 #30 Please review documented in this encounter Plan of Treatment Not on file documented as of this encounter Visit Diagnoses Diagnosis Anxiety and depression documented in this encounter Care Teams Adoption Social Worker Relationship Specialty Start Date End Date Isabelle Wallace NP [address] [place] [address] PCP - General Pediatrics 09/22/18 07/05/24 documented as of this encounter
--- OUTSIDE RECORDS SUMMARY | 2024-10-26 10:39 | XMS_ITS | Encounter Summary ---
Author Organization [facility] Address [address] [place] [address] Phone Care Team Providers Care Drier And Grinder Tender Name Role Phone Isabelle Wallace NP Primary Care Provider [phone] Reason for Visit * Reason Comments Med Refill Encounter Details Date Type Department Care Team (Late st Contact Info) Description 12/15/2021 [facility] [address] [address] Isabelle Wallace NP [address] [place] [address] Sleep difficulties Social History Tobacco Use Types [...] Telephone Encounter - Isabelle Wallace NP - 12/15/2021 1:42 PM EDT Refused, still titrating meds * Telephone Encounter - Tootie Dalton LPN - 12/15/2021 12:51 PM EDT Trazodone 50 mg daily Last med check 12/14/21 Next wcc 03/01/22 documented in this encounter Plan of Treatment Not on file documented as of this encounter Visit Diagnoses Diagnosis Sleep difficulties documented in this encounter Care Teams Drier And Grinder Tender Relationship Specialty Start Date End Date Isabelle Wallace NP [address] [place] [address] PCP - General Pediatrics 09/22/18 07/05/24 documented as of this encounter
== END 2024-10-26 10:46 | disposition home or self-care (01) ==
PROVIDERS: PCP Family Medicine; Visit Provider Family Medicine
DX: F31.9 Bipolar disorder, unspecified (principal); F41.8 Other specified anxiety disorders; K58.9 Irritable bowel syndrome, unspecified; Z11.3 Encounter for screening for infections with a predominantly sexual mode of transmission; Z00.00 Encounter for general adult medical examination without abnormal findings

== ENCOUNTER → 2024-10-26 09:53 | Outpatient (BNVA) | payer OTHER, SELFPAY | PROVIDERS: PCP Family Medicine; Visit Provider Family Medicine | DX: F31.9 Bipolar disorder, unspecified (principal); K58.9 Irritable bowel syndrome, unspecified | CPT/HCPCS: 96127 ==

== ENCOUNTER 2024-10-26 11:15 | Outpatient (REF) | payer OTHER, SELFPAY ==
--- OUTSIDE RECORDS SUMMARY | 2024-10-26 12:31 | XMS_ITS | Clinical Summary ---
Author Organization [facility] Address [address] [place] [address] Phone Care Team Providers Care Gastroenterology Nurse Name Role Phone Unavailable Primary Care Provider [...] Started dicyclomine. Needs to schedule f/u with appliance installer and collect specimen for fecal calprotectin. Assessment [...] EST): Ongoing sx. I advised pt attend [facility] walk in clinic for further evaluation Anxiety and depression 11/12/2020 Assessment & Plan (12/15/2021 2:29 PM EDT): Will make referral to [facility] for medication management. Assessment & Plan (11/02/2021 [...] may be an explanation for headaches 11/23 [facility] admit migraine. 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 Pseudotumor less likely but remains on differential, oupt dilated exam with Dr. Nix negative for papilledema. F/u with outpt neuro at [facility], started on Topamax. Assessment & Plan (10/09/2019 3:04 PM EST): Follow up with neuro as planned. Assessment & Plan (09/22/2018 12:44 PM EST): Family will call [facility] neuro for f/u. I told [...] - 08/07/2024 4:45 AM EST Hospital Encounter [facility] - Patient Ping Discharge Disposition: ED [...] Completed 10/08/2019, 014 Procedures * Due to [place] [employer] law, this organization might not be sharing sensitive test results. Procedure Name Priority Date/Time Associated Diagnosis Comments CHLAMYDIA AND GONORRHEA, AMPLIFIED Routine 07/22/2022 4:45 PM EST Well adult exam from Last 3 Months or Most Recently Relevant to Health Maintenance Results * Due to [facility] law, this organization might not be sharing sensitive test results. * Chlamydia and Gonorrhoea, Amplified (07/22/2022 4:45 PM EST) Chlamydia Trachomatis, DNA Probe NEGATIVE (NEG) [facility] Comment: No Chlamydia Trachomatis RNA detected in this patient's sample ? (REFERENCE RANGE/NORMAL VALUE: NOT DETECTED) ? Note: This test uses business loan processor- mediated amplification method to detect rRNA from C. Trachomatis URINE GC AMP PROBE NEGATIVE (NEG) [facility] Comment: No Neisseria Gonorrhoeae RNA detected in this patient's sample ? (REFERENCE RANGE/NORMAL VALUE: NOT DETECTED) ? NOTE: This test uses business loan processor-mediated amplification method to detect rRNA from N.Gonorrhoeae. [...] without risk of sexual abuse. Consult the [facility] if needed. Contact phone number . Therapeutic failure or success cannot be determined with the Aptima Combo2 assay since nucleic acid may persist following appropriate antimicrobial therapy. The Centers for Disease Control and Prevention (CDC) recommends confirmatory retesting using culture or a different nucleic acid amplification test when positive results occur, if indicated. Testing performed or reported by [facility], a Service of [facility], [place] [address] Balaji Dolan MD, Training Generalist [facility]# [id number] Urine (Urine) 07/22/2022 4:4 5 PM EST 07/23/2022 8:35 AM EST us Nevaeh York MD LAB MICROBIOLOGY - GENERAL ORDER TAMIA Final Result [facility] from Last 3 Months or Most Recently Relevant to Health Maintenance Insurance [facility]
--- OUTSIDE RECORDS SUMMARY | 2024-10-26 12:31 | XMS_ITS | Encounter Summary ---
Author Organization [facility] Address [address] [place] [address] Phone Care Team Providers Care Booking Officer Name Role Phone Isabelle Wallace NP Primary Care Provider [phone] Reason for Visit * Reason Comments Med Refill Encounter Details Date Type Department Care Team (Late st Contact Info) Description 03/30/2022 [facility] [address] [address] Rocio Simeon NP Anxiety and depression Social [...] 04/01/2022 2:09 PM EDT No response from [employer] message yet. RX declined with message that needs to contact office. * Telephone Encounter - Lea Parker MA - 03/30/2022 9:21 AM EDT Refill request for Citalopram 20mg Last [facility] 11/09/20 Med check 12/14/21 Refilled 12/29/21 Overdue [facility] [employer] message sent Please review documented in this encounter Plan of Treatment Not on file documented as of this encounter Visit Diagnoses Diagnosis Anxiety and depression documented in this encounter Care Teams Booking Officer Relationship Specialty Start Date End Date Isabelle Wallace NP [address] [place] [address] PCP - General Pediatrics 09/22/18 07/05/24 documented as of this encounter
--- OUTSIDE RECORDS SUMMARY | 2024-10-26 12:31 | XMS_ITS | Encounter Summary ---
Author Organization [facility] Address [address] [place] [address] Phone Care Team Providers Care Assistant Financial Accountant Name Role Phone Isabelle Wallace NP Primary Care Provider [phone] Reason for Visit * Reason Comments Med Refill Encounter Details Date Type Department Care Team (Late st Contact Info) Description 12/15/2021 [facility] [address] [address] Isabelle Wallace NP [address] [place] [address] Sleep difficulties Social History Tobacco Use Types [...] difficulties documented in this encounter Care Teams Assistant Financial Accountant Relationship Specialty Start Date End Date Isabelle Wallace NP [address] [place] [address] PCP - General Pediatrics 09/22/18 07/05/24 documented as of this encounter
--- OUTSIDE RECORDS SUMMARY | 2024-10-26 12:31 | XMS_ITS | Encounter Summary ---
Author Organization [facility] Address [address] [place] [address] Phone Care Team Providers Care News Anchor Name Role Phone Isabelle Wallace NP Primary Care Provider [phone] Reason for Visit * Reason Comments Med Refill Encounter Details Date Type Department Care Team (Late st Contact Info) Description 05/21/2021 [facility] [address] [address] Isabelle Wallace NP [address] [place] [address] Anxiety and depression Social History Tobacco Use [...] Sertraline, requesting a 90 day supply Last [facility] 11/09/20 Med check was 04/25/21 Upcoming on 05/29/21 Last refill 04/25/21 #30 Please review documented in this encounter Plan of Treatment Not on file documented as of this encounter Visit Diagnoses Diagnosis Anxiety and depression documented in this encounter Care Teams News Anchor Relationship Specialty Start Date End Date Isabelle Wallace NP 7 [facility] [place] [address] PCP - General Pediatrics 09/22/18 07/05/24 documented as of this encounter
--- OUTSIDE RECORDS SUMMARY | 2024-10-26 12:31 | XMS_ITS | Encounter Summary ---
Author Organization [facility] Address [address] [place] [address] Phone Care Team Providers Care Finisher Wallboard And Plasterboard Name Role Phone Isabelle Wallace NP Primary Care Provider [phone] Reason for Visit * Reason Comments Med Refill Encounter Details Date Type Department Care Team (Late st Contact Info) Description 03/03/2021 [facility] [address] [address] Isabelle Wallace NP 7 [place] [address] Anxiety Social History Tobacco Use Types Packs/Day [...] unspecified documented in this encounter Care Teams Finisher Wallboard And Plasterboard Relationship Specialty Start Date End Date Isabelle Wallace NP 7 [facility] [address] PCP - General Pediatrics 09/22/18 07/05/24 documented as of this encounter
--- OUTSIDE RECORDS SUMMARY | 2024-10-26 12:31 | XMS_ITS | Encounter Summary ---
Author Organization [facility] Address [address] [place] [address] Phone Care Team Providers Care Automobile Glass Technician Name Role Phone Isabelle Wallace NP Primary Care Provider [phone] Reason for Visit * Reason Onset Date Comments Med Refill Med Refill 10/03/2021 Encounter Details Date Type Department Care Team (Late st Contact Info) Description 09/28/2021 [facility] [address] [address] Isabelle Wallace NP [address] [place] [address] Anxiety and depression Social History Tobacco Use [...] depression documented in this encounter Care Teams Automobile Glass Technician Relationship Specialty Start Date End Date Isabelle Wallace NP 7 [facility] [place] [address] PCP - General Pediatrics 09/22/18 07/05/24 documented as of this encounter
--- OUTSIDE RECORDS SUMMARY | 2024-10-26 12:31 | XMS_ITS | Encounter Summary ---
Author Organization [facility] Address [address] [place] [address] Phone Care Team Providers Care Annealing Torch Operator Name Role Phone Isabelle Wallace NP Primary Care Provider [phone] Reason for Visit * Reason Comments Med Refill Encounter Details Date Type Department Care Team (Late st Contact Info) Description 12/18/2018 [facility] [address] [place] [address] Isabelle Wallace NP 7 [place] [address] Dysmenorrhea in adolescent Social History Tobacco Use [...] adolescent documented in this encounter Care Teams Annealing Torch Operator Relationship Specialty Start Date End Date Isabelle Wallace NP 7 [place] [address] PCP - General Pediatrics 09/22/18 07/05/24 documented as of this encounter
--- OUTSIDE RECORDS SUMMARY | 2024-10-26 12:31 | XMS_ITS | Encounter Summary ---
Author Organization [facility] Address [address] [place] [address] Phone Care Team Providers Care Side Gluer Name Role Phone Isabelle Wallace NP Primary Care Provider [phone] Encounter Details Date Type Department Care Team (Late st Contact Info) Description 01/25/2018 Conversion [facility]counter [facility] [address] [address] Dori Lazaro MD [address] [place] [address] Social History Tobacco Use Types Packs/Day Years [...] on filedocumented in this encounter Care Teams Side Gluer Relationship Specialty Start Date End Date Isabelle Wallace NP [address] [place] [address] PCP - General Pediatrics 09/22/18 07/05/24 documented as of this encounter
--- OUTSIDE RECORDS SUMMARY | 2024-10-26 12:31 | XMS_ITS | Encounter Summary ---
Author Organization [facility] Address [address] [place] [address] Phone Care Team Providers Care Faculty Criminal Justice Name Role Phone Isabelle Wallace NP Primary Care Provider [phone] Reason for Visit * Reason Comments Med Refill Encounter Details Date Type Department Care Team (Late st Contact Info) Description 05/07/2019 [facility] - [address] [address] Isabelle Wallace NP 7 [place] [address] Dysmenorrhea in adolescent Social History Tobacco Use [...] adolescent documented in this encounter Care Teams Faculty Criminal Justice Relationship Specialty Start Date End Date [facility] [address] P[facility] - General [facility] 09/22/18 07/05/24 documented as of this encounter
--- OUTSIDE RECORDS SUMMARY | 2024-10-26 12:31 | XMS_ITS | Encounter Summary ---
Author Organization [facility] Address [address] [place] [address] Phone Care Team Providers Care Passenger Interline Clerk Name Role Phone Isabelle Wallace NP Primary Care Provider [phone] Reason for Visit * Reason Comments Med Refill Encounter Details Date Type Department Care Team (Late st Contact Info) Description 04/01/2022 [facility] [address] [address] Shelbi Bourne MD [address] [place] [address] Sleep difficulties Social History Tobacco Use Types [...] difficulties documented in this encounter Care Teams Passenger Interline Clerk Relationship Specialty Start Date End Date Isabelle Wallace NP [address] [place] [address] PCP - General Pediatrics 09/22/18 07/05/24 documented as of this encounter
[2024-10-26 14:12] LABS: MANUAL DIFF FLAG NO
[2024-10-26 14:26] LABS: Appearance Urine Clear; Color Urine Yellow; Glucose Urine UA Negative (Negative); Leukocyte Esterase Urine Negative (Negative); Nitrite Urine Negative (Negative); PH 8.5 (5.0-9.0); UMIC TRIGGER UA YES; Urine Blood Trace (Negative); Urine Ketones Negative (Negative); Urine Protein Negative (Neg-Trace)
[2024-10-26 14:31] LABS: Basophils Percent Auto 0.5 % (0-2); Eosinophils Absolute Auto 0.3 X10*3/uL (0.0-0.4); Eosinophils Percent Auto 8.1 % (0-4); Hemoglobin 14.4 g/dl (12.0-16.0); Imm Gran Abs Auto 0.01 X10*3/uL (0.00-0.03); Imm Gran Pct Auto 0.3 % (0.0-0.4); Lymphocytes Absolute Auto 1.1 X10*3/uL (1.2-4.9); Lymphocytes Percent Auto 27.2 % (20-40); Mean Corpuscular HGB Conc 32.7 g/dl (31.0-35.0); Mean Corpuscular Hemoglobin 27.2 pg (27.0-33.0); Mean Corpuscular Volume 83.2 fL (80.0-98.0); Mean Platelet Volume 10.7 fL (9.4-12.3); Monocytes Absolute Auto 0.4 X10*3/uL (0.1-1.2); Monocytes Percent Auto 9.4 % (2-11); Neutrophils Absolute Auto 2.1 x10*3/uL (2.0-8.3); Neutrophils Percent Auto 54.5 % (45-73); Platelet Count 250 X10*3/uL (160-400); Red Blood Count 5.29 X10*6/uL (4.20-5.50); Red Cell Distribution Width 13.2 % (11.0-16.0); White Blood Count 3.9 X10*3/uL (4.8-10.8)
[2024-10-26 14:32] LABS: Bacteria Urine None Seen (None Seen); Hyaline Casts Urine 0-2 /LPF (0-2); RBC Urine 0-2 /HPF (0-2); Squamous Epithelial Cell Urine 0-2 /HPF (0-2); WBC Urine 0-5 /HPF (0-5)
[2024-10-26 15:00] LABS: Creatinine Urine 76.78 mg/dL; Microalbumin Urine < 5.0 mg/L
[2024-10-26 15:02] LABS: Alanine Aminotransferase 32 U/L (0-31); Albumin Level 4.1 g/dL (3.5-5.0); Alkaline Phosphatase 71 U/L (39-117); Anion Gap 11 (12-20); Aspartate Amino Transferase 32 U/L (5-31); Bilirubin Total 0.4 mg/dL (0.0-1.0); Blood Urea Nitrogen 6 mg/dL (9-16); Calcium 9.3 mg/dL (8.4-10.2); Carbon Dioxide 26 mmol/L (22-29); Chloride 107 mmol/L (96-108); Cholesterol 199 mg/dL (<200); Estimated Glomerular Filt Rate > 60; Glucose Fasting 82 mg/dL (60-99); HDL Cholesterol 54 mg/dL (>40); LDL Cholesterol Calculated 126 mg/dL (<100); Potassium 3.9 mmol/L (3.3-5.1); Sodium 140 mmol/L (135-145); TSH reflex Free T4 1.69 uIU/mL (0.32-4.0); Total Protein 8.3 g/dL (6.5-8.0); Triglycerides 95 mg/dL (<150); Vitamin D 25-OH Total 44.3 ng/mL (>30)
[2024-10-26 15:28] LABS: Vitamin B12 288 pg/mL (200-900)
[2024-10-27 07:59] LABS: Syphilis Screen Nonreactive (Nonreactive)
[2024-10-27 08:08] LABS: HBS Num1 0.98 mIU/mL (0-7.99); HBc Num1 0.18 S/CO (0.00-0.79); HBsAGNum1 0.25 S/CO (0.00-0.99); HIV AB/AG Nonreactive (Nonreactive); HIV Num 1 0.06 S/CO (0.00-0.99); Hepatitis B Core Antibody Nonreactive (Nonreactive); Hepatitis B Surface Antigen Negative (Negative); ~HepC Num1 0.12 S/CO (0.00-0.79); ~Hepatitis B Surface Antibody NONREACTIVE (Nonreactive); ~Hepatitis C Antibody Nonreactive (Nonreactive)
== END 2024-10-26 11:16 | disposition home or self-care (01) ==
LOC: HO.WFDLDS 11:15
PROVIDERS: Visit Provider Family Medicine
DX: Z00.00 Encounter for general adult medical examination without abnormal findings (principal); I10 Essential (primary) hypertension; Z11.3 Encounter for screening for infections with a predominantly sexual mode of transmission; E53.8 Deficiency of other specified B group vitamins; E55.9 Vitamin D deficiency, unspecified
CPT/HCPCS: 36415; 80053; 80061; 81001; 82306; 82570; 82607; 82746; 84443; 85025; 86704; 86706; 86780; 86803; 87340; 87389

== ENCOUNTER 2025-02-09 09:21 | Outpatient (AMB) | payer OTHER, SELFPAY ==
--- NOTE | 2025-02-09 09:25 | MHC.PC.OV ---
Vital Signs 02/09/25 09:28 Height 5 ft 6 in Weight 254 lb BMI 41.0 BP 118/76 Blood Pressure Location Lt brachial Position Sitting Respiration 16 Pulse 79 Pulse Source Pulse Oximeter Pulse Oximetry (%) 97 Oxygen Delivery Method Room Air Intake Visit Reasons: CPE with f/u labs and health maint. Dr. Craig pt. Intake Note: Physical Tomographic Tech Required: No Allergies No Known Allergies Allergy (Verified 02/09/25 09:25) Medication List - Last Reconciled 02/09/25 by Raya Vargas PA-C amitriptyline 20 mg (2 x 10 mg) PO DAILY 30 days lamotrigine 150 mg PO DAILY levonorgestrel (Mirena) intrauterine Tobacco use date assessed: 02/09/25 Dental Screening Dental Screen Date: 02/09/25 Did you have a dental visit in the last 12 months?: Yes Did you have a dental problem in the last 6 months where you did not have access to dental care?: No Was dental information given to patient?: Patient has dentist HPI CPE with f/u labs and health maint. Dr. Craig pt. HPI Details Patient is a 20-year-old female with a significant past medical history of bipolar 1 disorder, IBS, anxiety and depression presenting today for a physical exam. She normally follows with Dr. Jurado. HEENT: Does complain today of increased seasonal allergies. She does not take anything for this. She had reports nasal congestion and sinus congestion at times. No sinus pain or pressure. No ear pain, fevers or chills. No sore throat. Psych: Feels overall stable with her bipolar disorder. She is currently managed with lamotrigine 150 mg daily. Follows with a psychiatrist and therapist. No SI/HI. GI: Previously following with [facility] and was referred to [facility] Gastroenterology at her initial visit with Dr. Jurado. She says that she never heard. Currently on amitriptyline 20 mg daily for her IBS symptoms. She feels that the amitriptyline is a bit helpful for her symptoms. She gets diarrhea and cramping with ibs sx which she thinks are triggered by stress. She did see pediatric GI at [facility] and was also told on her double endoscopy (2 years ago) she had H pylori. She states that completed treatment and does not recall doing any test to confirm eradication. Last labs did show mildly elevated LFTs. She denies any GERD sx. Accounting Manager: Recent STD screening negative. UTD with sales and marketing professional, follows with [facility]. She gets urine tests with sales and marketing professional and no hx of hematuria. last ua here did show trace blood, she had her period. Family history: mother had breast ca in her 50s. Unsure of BRCA status [facility] Medical History (Updated 02/09/25 @ 09:53 by Raya Vargas PA-C) Bipolar 1 disorder Depression Anxiety IBS (irritable bowel syndrome) Surgical History (Updated 02/09/25 @ 09:33 by Cookie Albright CMA) No pertinent past surgical history Family History Brother FH: mental illness Asthma Sister Asthma Father High blood cholesterol Alcohol abuse Paternal Grandmother High blood cholesterol Paternal Grandfather Pacemaker Mother Breast cancer Social History (Updated 02/09/25 @ 09:33 by Cookie Albright CMA) Housing: House Alcohol intake: never Patient Tobacco Use Status: Never used Tobacco e-Cigarette/Vaping Use: Never Used Second Hand Smoke Exposure: No service: No Current occupational status: employed Current occupation: warehouse shift supervisor Cognitive needs: No Hearing needs: No Vision needs: Yes Questionnaire Thrive Questionnaire Date Thrive assessed: 10/21/24 I am a: Patient What is your living situation today?: I have a steady place to live Within the past 12 months, did the food you bought not last and you didn't have the money to get more?: Never true Within the past 12 months, did you worry whether your food would run out before you got money to buy more?: Never true Do you have trouble paying for medicines?: No Do you have trouble getting transportation to medical appointments?: No Do you have trouble paying your heating and electricity bill?: No Do you have trouble taking care of your child, family member or friend?: No Do you have trouble with day-to-day activities such as bathing, preparing meals, shopping, managing finances, etc.?: No Are you currently unemployed and looking for a job?: No Are you interested in more education?: I choose not to answer this question Please select the resources that you would like help with: None Currently or been in a relationship where the following occur: I choose not to answer THRIVE Score: 0 BRYAN-7 AMB Questionnaire BRYAN-7 Date BRYAN - 7 assessed: 10/26/24 Source: Developed by Drs. Matt Torres, Ladi Bertrand, Rm Dyer and colleagues, with an educational tyler from [facility]. Physical exam (Primary Care) Vital Signs: Last Vital Signs Pulse 79 02/09/25 09:28 Resp 16 02/09/25 09:28 BP 118/76 02/09/25 09:28 Pulse Ox 97 02/09/25 09:28 Oxygen Delivery Method Room Air 02/09/25 09:28 BMI result Body Mass Index 41.0 Tobacco/Smoking Status: Tobacco use Status Tobacco use date assessed 02/09/25 02/09/25 09:33 Patient Tobacco Use Status Never used Tobacco 02/09/25 09:33 e-Cigarette/Vaping Use Never Used 02/09/25 09:33 Thrive Assessment: Date of Thrive Assessment Date Thrive assessed 10/21/24 02/09/25 09:33 Currently or been in a relationship where the following occur: I choose not to answer Const Orientation/consciousness: patient oriented x3 HENMT Ears: hearing grossly normal bilaterally and TM's normal bilaterally General nose exam: No nasal polyps present Face and sinus: Yes sinuses nontender Mouth: Normal oral and palatal mucosa present Eyes Pupils: Equal, round and reactive pupils present EOM: EOMs intact bilaterally Neck Neck: Yes full ROM and Yes no lymphadenopathy Thyroid: Thyroid normal Chest Chest palpation & inspection: normal inspection of the chest Resp Auscultation: clear to auscultation bilaterally Cardio Rate: regular rate Rhythm: regular rhythm Heart sounds: S1 normal heart sound present and S2 normal heart sound present Peripheral pulses: Peripheral pulses 2+ throughout GI Other: Soft, nontender Auscultation: normal bowel sounds Rectal Exam - Female: deferred General: Yes no CVA tenderness Back/Spine/Pelvis Other: Nontender Back: no CVA tenderness Skin General skin exam: no rashes or lesions noted Neuro General: patient oriented x3, gait normal, CN's II-XI intact bilaterally and deep tendon reflexes 2+ bilaterally Cranial nerves: Yes Equal, round and reactive pupils present Motor exam (neuro): 5/5 motor strength present throughout Sensory Exam: double simultaneous stimulation for sensation normal Coordination: [id number] test normal and Romberg test negative Extrem General: Yes normal to inspection and Yes full ROM Psych Affect: normal affect Attitude: cooperative Thought process: Normal thought process present Thought content: Normal thought content present Insight: Good insight present (Psych) Judgement: Good judgement present (Psych) Coding Level of Care Code Est Pt Level 3 (67491) Diagnoses Routine general medical examination at a health care facility Z00.00 IBS (irritable bowel syndrome) K58.9 Bipolar 1 disorder F31.9 History of Helicobacter pylori infection Z86.19 Elevated LFTs R79.89 Seasonal allergies J30.2 Assessment & Plan Assessment & Plan (1) Routine general medical examination at a health care facility: Code(s): Z00.00 - Encounter for general adult medical examination without abnormal findings Plan: Health maintenance reviewed. Labs reviewed (2) IBS (irritable bowel syndrome): Code(s): K58.9 - Irritable bowel syndrome, unspecified Category: Medical Plan: Continue amitriptyline Referral to GI (3) Bipolar 1 disorder: Code(s): F31.9 - Bipolar disorder, unspecified Category: Medical Plan: Following with psych. Stable. (4) History of Helicobacter pylori infection: Code(s): Z86.19 - Personal history of other infectious and parasitic diseases Category: Medical Plan: H pylori test ordered (5) Elevated LFTs: Code(s): R79.89 - Other specified abnormal findings of blood chemistry Category: Medical Plan: We will recheck LFTs. Reviewed labs with patient. (6) Seasonal allergies: Code(s): J30.2 - Other seasonal allergic rhinitis Category: Medical Plan: She will start Flonase and Zyrtec. Orders: Orders H pylori Ag Stool Today Z86.19 - Personal history of other infectious and parasitic diseases Complete Blood Count Auto Diff Today R79.89 - Other specified abnormal findings of blood chemistry Liver Panel Today R79.89 - Other specified abnormal findings of blood chemistry Referrals Gastroenterology Referral K58.9 - Irritable bowel syndrome, unspecified, R79.89 - Other specified abnormal findings of blood chemistry Medications: New fluticasone propionate 50 mcg/actuation (Flonase Allergy Relief) administer into each nostril 1 spray intranasal BID 16 grams 0RF cetirizine (Zyrtec) 10 mg PO DAILY 90 tabs 0RF
[2025-02-09 09:28] VITALS: BP 118/76; PULSE 79; RESP 16; O2SAT 97; BMI 41.0
--- OUTSIDE RECORDS SUMMARY | 2025-02-09 09:43 | XMS_ITS | Encounter Summary ---
Author Organization [facility] Address [address] [place] [address] Phone Care Team Providers Care Form Setter Steel Forms Name Role Phone Isabelle Wallace NP Primary Care Provider [phone] Reason for Visit * Reason Comments Med Refill Encounter Details Date Type Department Care Team (Late st Contact Info) Description 05/07/2019 [facility]ill [facility] - [address] [address] Isabelle Wallace NP 7 [place] [address] Dysmenorrhea in adolescent Social History Tobacco Use [...] adolescent documented in this encounter Care Teams Form Setter Steel Forms Relationship Specialty Start Date End Date [facility] [address] PCP - General Pediatrics 09/22/18 07/05/24 documented as of this encounter
== END 2025-02-09 09:58 | disposition home or self-care (01) ==
LOC: HO.HMCFM 09:22
PROVIDERS: PCP Family Medicine; Visit Provider Physician Assistant
DX: Z00.00 Encounter for general adult medical examination without abnormal findings (principal); K58.9 Irritable bowel syndrome, unspecified; F31.9 Bipolar disorder, unspecified; Z86.19 Personal history of other infectious and parasitic diseases; R79.89 Other specified abnormal findings of blood chemistry; J30.2 Other seasonal allergic rhinitis

== ENCOUNTER → 2025-02-09 09:21 | Outpatient (BNVA) | payer OTHER, SELFPAY | PROVIDERS: PCP Family Medicine; Visit Provider Physician Assistant | DX: Z13.89 Encounter for screening for other disorder (principal) ==

== ENCOUNTER 2025-02-09 10:07 | Outpatient (REF) | payer OTHER, SELFPAY ==
[2025-02-09 11:14] LABS: MANUAL DIFF FLAG NO
[2025-02-09 11:34] LABS: Basophils Percent Auto 0.6 % (0-2); Eosinophils Absolute Auto 0.4 X10*3/uL (0.0-0.4); Eosinophils Percent Auto 8.7 % (0-4); Hematocrit 43.3 % (37.0-47.0); Hemoglobin 14.3 g/dl (12.0-16.0); Imm Gran Abs Auto 0.01 X10*3/uL (0.00-0.03); Imm Gran Pct Auto 0.2 % (0.0-0.4); Lymphocytes Absolute Auto 1.4 X10*3/uL (1.2-4.9); Lymphocytes Percent Auto 27.8 % (20-40); Mean Corpuscular Hemoglobin 27.7 pg (27.0-33.0); Mean Corpuscular Volume 83.8 fL (80.0-98.0); Monocytes Absolute Auto 0.3 X10*3/uL (0.1-1.2); Monocytes Percent Auto 6.7 % (2-11); Neutrophils Absolute Auto 2.8 x10*3/uL (2.0-8.3); Platelet Count 299 X10*3/uL (160-400); Red Blood Count 5.17 X10*6/uL (4.20-5.50); Red Cell Distribution Width 13.2 % (11.0-16.0); White Blood Count 4.9 X10*3/uL (4.8-10.8)
[2025-02-09 14:13] LABS: Alanine Aminotransferase 33 U/L (0-31); Alkaline Phosphatase 73 U/L (39-117); Aspartate Amino Transferase 26 U/L (5-31); Bilirubin Direct 0.1 mg/dL (0.0-0.5); Bilirubin Total 0.3 mg/dL (0.0-1.0); Total Protein 7.3 g/dL (6.5-8.0)
== END 2025-02-09 10:08 | disposition home or self-care (01) ==
LOC: HO.WFDLDS 10:07
PROVIDERS: Visit Provider Physician Assistant
DX: R79.89 Other specified abnormal findings of blood chemistry (principal)
CPT/HCPCS: 36415; 80076; 85025

== ENCOUNTER 2025-05-24 08:09 | Outpatient (REF) | payer OTHER, SELFPAY ==
--- NOTE | ~2025-05-24 | US_ITS ---
EXAMINATION: US ABDOMEN COMPLETE WITH LIVER ELASTOGRAPHY HISTORY: R79.89 - Other specified abnormal findings of blood chemistry TECHNIQUE: Real-time grayscale ultrasound imaging of the abdomen was performed and images were reviewed. COMPARISON: There are no prior studies available for comparison. FINDINGS: Liver: The right lobe of the liver measures 13.7 cm in size. The left lobe of the liver measures 8.3 cm in size. The liver demonstrates normal homogeneous echotexture. No focal mass or intrahepatic biliary ductal dilatation is identified. There is normal hepatopedal flow in the portal vein. Ultrasound elastography of the liver was performed with 10 separate measurements of the liver parenchyma with the patient in the supine position. Measurements were obtained approximately 2 cm below Rizwan's capsule and perpendicular to the capsule. The median shear wave velocity is 1.72 m/s. The interquartile range/median (IQR/median) is 0.08. Gallbladder and biliary tree: The gallbladder is unremarkable, without evidence of calculi, wall thickening, or pericholecystic fluid. There is no sonographic Gamez sign. The common bile duct is normal in caliber measuring 2 mm. Kidneys: The right kidney measures 10.4 cm in length. The left kidney measures 10.9 cm in length. The kidneys are unremarkable, without evidence of masses, hydronephrosis, or calculi. Pancreas: The pancreatic head, neck, and body are unremarkable. The pancreatic tail is obscured by bowel gas. Spleen: The spleen is normal in size and contour, measuring 8.6 cm in length. Abdominal aorta and inferior vena cava: The visualized portions of the abdominal aorta and inferior vena cava are normal in caliber. There is no free fluid in the abdomen. US/US abdomen comp w elastography IMPRESSION: Unremarkable abdominal ultrasound. The median shear wave velocity in the liver is 1.72 m/s, corresponding to a median liver stiffness of 9.00 kPa. The IQR/median value is 0.08. This is indicative of a quality data set. Findings are indicative of a high elastography value suggestive of compensated advanced chronic liver disease. REFERENCE: Society of Radiologists in Ultrasound Liver Stiffness Thresholds (2020): LIVER STIFFNESS THRESHOLDS: *Shear wave velocity less than 1.3 m/s (Liver Stiffness equal or less than 5 kPa): High probability of being normal. *Shear wave velocity less than 1.7 m/s (Liver Stiffness less than 9 kPa): In the absence of other known clinical signs, rules out compensated advanced chronic liver disease. *Shear wave velocity between 1.7-2.1 m/s (Liver Stiffness 9-13 kPa): Suggestive of compensated advanced chronic liver disease but need further test for confirmation. *Shear wave velocity between 2.1-2.4 m/s (Liver Stiffness 13-17 kPa): Rules in compensated advanced chronic liver disease. *Shear wave velocity greater than 2.4 m/s (Liver Stiffness over 17 kPa): Suggestive of clinically significant portal hypertension. QUALITY OF DATA SET: *IQR/Median value equal or less than 0.15 implies a quality data set. *IQR/Median value over 0.15 implies a poor quality data set. SIGNIFICANT CHANGE FROM PRIOR EXAM: Significant change if liver stiffness measurement is 10% or greater from prior exam. OTHER CONSIDERATIONS: The stage of liver fibrosis may be overestimated in the setting of acute hepatitis, liver inflammation, elevated liver function tests, hepatic vascular congestion, obstructive cholestasis, non-fasting state, and infiltrative diseases such as amyloidosis and lymphoma. In some patients with NAFLD, the liver stiffness thresholds for compensated advanced chronic liver disease may be lower. In causes other than viral hepatitis and NAFLD, liver stiffness thresholds are not well established. Electronically signed by: Matt Myles MD 05/24/2025 09:34 AM EDT
--- OUTSIDE RECORDS SUMMARY | 2025-05-24 09:18 | XMS_ITS | Encounter Summary ---
Author Organization [facility] Address [address] [place] [address] Phone Care Team Providers Care Compliance Tester Name Role Phone Isabelle Wallace NP Primary Care Provider [phone] Reason for Visit * Reason Comments Med Refill Encounter Details Date Type Department Care Team (Late st Contact Info) Description 05/07/2019 [facility] - [address] [address] Isabelle Wallace NP 7 [place] [address] Dysmenorrhea in adolescent Social History Tobacco Use [...] adolescent documented in this encounter Care Teams Compliance Tester Relationship Specialty Start Date End Date [facility] [address] PCP - General Pediatrics 09/22/18 07/05/24 documented as of this encounter
--- OUTSIDE RECORDS SUMMARY | 2025-05-24 09:18 | XMS_ITS | Encounter Summary ---
Author Organization [facility] Address [address] [place] [address] Phone Care Team Providers Care Service Technician Name Role Phone Isabelle Wallace NP Primary Care Provider [phone] Reason for Visit * Reason Comments Med Refill Encounter Details Date Type Department Care Team (Late st Contact Info) Description 04/01/2022 [facility]ill [facility] [address] [address] Shelbi Bourne MD [address] [place] [address] Sleep difficulties Social History Tobacco Use Types [...] difficulties documented in this encounter Care Teams Service Technician Relationship Specialty Start Date End Date Isabelle Wallace NP [address] [place] [address] PCP - General Pediatrics 09/22/18 07/05/24 documented as of this encounter
--- OUTSIDE RECORDS SUMMARY | 2025-05-24 09:18 | XMS_ITS | Encounter Summary ---
Author Organization [facility] Address [address] [place] [address] Phone Care Team Providers Care Shoe Maker Name Role Phone Isabelle Wallace NP Primary Care Provider [phone] Reason for Visit * Reason Comments Med Refill Encounter Details Date Type Department Care Team (Late st Contact Info) Description 05/21/2021 [facility] [address] [address] Isabelle Wallace NP [address] [place] [address] Anxiety and depression Social History Tobacco Use [...] Sertraline, requesting a 90 day supply Last [facility] 11/09/20 Med check was 04/25/21 Upcoming on 05/29/21 Last refill 04/25/21 #30 Please review documented in this encounter Plan of Treatment Not on file documented as of this encounter Visit Diagnoses Diagnosis Anxiety and depression documented in this encounter Care Teams Shoe Maker Relationship Specialty Start Date End Date Isabelle Wallace NP 7 [facility] [place] [address] PCP - General Pediatrics 09/22/18 07/05/24 documented as of this encounter
--- OUTSIDE RECORDS SUMMARY | 2025-05-24 09:18 | XMS_ITS | Clinical Summary ---
Author Organization [facility] Address [address] [place] [address] Phone Care Team Providers Care Camera Supervisor Name Role Phone Unavailable Primary Care Provider [...] Started dicyclomine. Needs to schedule f/u with aircraft log clerk and collect specimen for fecal calprotectin. Assessment [...] EST): Ongoing sx. I advised pt attend [facility] walk in clinic for further evaluation Anxiety and depression 11/12/2020 Assessment & Plan (12/15/2021 2:29 PM EDT): Will make referral to [facility] for medication management. Assessment & [...] sertraline. We agree to her meeting with nAgelica Walker tomorrow, keeping the dose at 100 [...] may be an explanation for headaches 11/23 [facility] admit migraine. 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 Pseudotumor less likely but remains on differential, oupt dilated exam with Dr. Nix negative for papilledema. F/u with outpt neuro at [facility], started on Topamax. Assessment & Plan (10/09/2019 3:04 PM EST): Follow up with neuro as planned. Assessment & Plan (09/22/2018 12:44 PM EST): Family will call [facility] neuro for f/u. I told dad it [...] cyclobenzaprine. Continue PT, f/u in 6 wks. Immunizations Immunization Administration Dates Next Due DTaP [...] Grandfather Alive Paternal Grandmother (Age 56) Sister Hailey Alive Social History Tobacco Use Types Packs/Day [...] 63 11/26/2021 6:20 PM EDT Temperature 37.2 C (99 F) 12/11/2023 1:41 PM EDT Respiratory Rate - [...] Vaccine (1 of 2 - Standard) 2019 DTaP,Tdap,and Td Vaccines (7 - Td or Tdap) 07/27/2024 07/27/2014, 04/21/2008, 05/09/2004, Additional history exists Influenza Vaccines (#1) 2025 07/22/20, 11/09/2020, 10/08/2019, Additional history exists COVID-19 Vaccine (2024-2 6 season) 2025 01/19/2021, 12/29/2020 Hepatitis B Vaccines Completed 2003, 2003, 2003 HIB Vaccines Completed 05/09/2004, 03/2003, 2003 Pneumococcal Vaccine Completed 02/20/2005, 2003, 2003, Additional history exists MMR Vaccines Completed 01/14/2007, 01/27/2004 IPV Vaccines Completed 04/21/2008, 10/09, 2003, Additional history exists Varicella Vaccines Completed 04/21/2008, 0 01/14/2007, 01/27/2004 Hepatitis A Vaccines Completed 09/22/2018, 09/11/19 18 Meningococcal Vaccine Completed 10/08/2019, 014 Procedures * Due to [place] state law, this organization might not be sharing sensitive test results. Procedure Name Priority Date/Time Associated Diagnosis Comments CHLAMYDIA AND GONORRHEA, AMPLIFIED Routine 07/22/2022 4:45 PM EST Well adult exam from Last 3 Months or Most Recently Relevant to Health Maintenance Results * Due to [place] state law, this organization might not be sharing sensitive test results. * Chlamydia and Gonorrhoea, Amplified (07/22/2022 4:45 PM EST) Chlamydia Trachomatis, DNA Probe NEGATIVE (NEG) [facility] Comment: No Chlamydia Trachomatis RNA detected in this patient's sample (REFERENCE RANGE/NORMAL VALUE: NOT DETECTED) Note: This test uses plant manager- mediated amplification method to detect rRNA from C. Trachomatis URINE GC AMP PROBE NEGATIVE (NEG) [facility] Comment: No Neisseria Gonorrhoeae RNA detected in this patient's sample (REFERENCE RANGE/NORMAL VALUE: NOT DETECTED) NOTE: This test uses plant manager-mediated amplification method to detect rRNA from [...] without risk of sexual abuse. Consult the [facility] if needed. Contact phone number . Therapeutic failure or success cannot be determined with the Aptima Combo2 assay since nucleic acid may persist following appropriate antimicrobial therapy. The Centers for Disease Control and Prevention (CDC) recommends confirmatory retesting using culture or a different nucleic acid amplification test when positive results occur, if indicated. Testing performed or reported by [facility], a Service of [facility], [address], [place] [address] Balaji Dolan MD, Diet Assistant [facility]# [id number] Urine (Urine) 07/22/2022 4:4 5 PM EST 07/23/2022 8:35 AM EST Nevaeh York MD LAB MICROBIOLOGY - GENERAL ORDER TAMIA Final Result [facility] from Last 3 Months or Most Recently Relevant to Health Maintenance Insurance [facility] H[facility]
--- OUTSIDE RECORDS SUMMARY | 2025-05-24 09:18 | XMS_ITS | Encounter Summary ---
Author Organization [facility] Address [address] [place] [address] Phone Care Team Providers Care Employee Operations Examiner Name Role Phone Isabelle Wallace NP Primary Care Provider [phone] Reason for Visit * Reason Comments Med Refill Encounter Details Date Type Department Care Team (Late st Contact Info) Description 03/30/2022 [facility]ill [facility] [address] [address] Rocio Simeon NP Anxiety and depression Social [...] 04/01/2022 2:09 PM EDT No response from [employer] message yet. RX declined with message that needs to contact office. * Telephone Encounter - Lea Parker [place] - 03/30/2022 9:21 AM EDT Refill request for Citalopram 20mg Last [facility] 11/09/20 Med check 12/14/21 Refilled 12/29/21 Overdue [facility] [employer] message sent Please review documented in this encounter Plan of Treatment Not on file documented as of this encounter Visit Diagnoses Diagnosis Anxiety and depression documented in this encounter Care Teams Employee Operations Examiner Relationship Specialty Start Date End Date Isabelle Wallace NP [address] [place] [address] PCP - General Pediatrics 09/22/18 07/05/24 documented as of this encounter
--- OUTSIDE RECORDS SUMMARY | 2025-05-24 09:18 | XMS_ITS | Encounter Summary ---
Author Organization [facility] Address [address] [place] [phone] Phone Care Team Providers Care Records Section Supervisor Name Role Phone Isabelle Wallace NP Primary Care Provider [phone] Encounter Details Date Type Department Care Team (Late st Contact Info) Description 01/25/2018 Conversion Encounter [facility] [address] [address] Dori Lazaro MD [address] [place] [address] Social History Tobacco Use Types Packs/Day Years [...] on filedocumented in this encounter Care Teams Records Section Supervisor Relationship Specialty Start Date End Date Isabelle Wallace NP [address] [place] [id number] PCP - General Pediatrics 09/22/18 07/05/24 documented as of this encounter
--- OUTSIDE RECORDS SUMMARY | 2025-05-24 09:18 | XMS_ITS | Encounter Summary ---
Author Organization [facility] Address [address] [place] [phone] Phone Care Team Providers Care Lifter/Driver Name Role Phone Isabelle Wallace NP Primary Care Provider [phone] Reason for Visit * Reason Comments Med Refill Encounter Details Date Type Department Care Team (Late st Contact Info) Description 12/18/2018 [facility]ill [facility] [address] [place] [phone] Isabelle Wallace NP [address] [place] [address] Dysmenorrhea in adolescent Social History Tobacco Use [...] adolescent documented in this encounter Care Teams Lifter/Driver Relationship Specialty Start Date End Date Isabelle Wallace NP [address] [place] [address] PCP - General Pediatrics 09/22/18 07/05/24 documented as of this encounter
--- OUTSIDE RECORDS SUMMARY | 2025-05-24 09:18 | XMS_ITS | Encounter Summary ---
Author Organization [facility] Address [address] [place] [phone] Phone Care Team Providers Care Clam Grader Name Role Phone Isabelle Wallace NP Primary Care Provider [phone] Reason for Visit * Reason Comments Med Refill Encounter Details Date Type Department Care Team (Late st Contact Info) Description 12/15/2021 [facility] [address] [address] Isabelle Wallace NP [address] [place] [phone] Sleep difficulties Social History Tobacco Use Types [...] difficulties documented in this encounter Care Teams Clam Grader Relationship Specialty Start Date End Date Isabelle Wallace NP [address] [place] [address] PCP - General Pediatrics 09/22/18 07/05/24 documented as of this encounter
--- OUTSIDE RECORDS SUMMARY | 2025-05-24 09:18 | XMS_ITS | Encounter Summary ---
Author Organization [facility] Address [address] [place] [address] Phone Care Team Providers Care Plant Operations Manager Name Role Phone Isabelle Wallace NP Primary Care Provider [phone] Reason for Visit * Reason Comments Med Refill Encounter Details Date Type Department Care Team (Late st Contact Info) Description 03/03/2021 [facility] [address] [address] Isabelle Wallace NP [address] [place] [address] Anxiety Social History Tobacco Use Types Packs/Day [...] unspecified documented in this encounter Care Teams Plant Operations Manager Relationship Specialty Start Date End Date Isabelle Wallace NP [address] [place] [address] PCP - General Pediatrics 09/22/18 07/05/24 documented as of this encounter
--- OUTSIDE RECORDS SUMMARY | 2025-05-24 09:18 | XMS_ITS | Encounter Summary ---
Author Organization [facility] Address [address] [place] [phone] Phone Care Team Providers Care Machine Or Machinery Mechanic Name Role Phone Isabelle Wallace NP Primary Care Provider [phone] Reason for Visit * Reason Onset Date Comments Med Refill Med Refill 10/03/2021 Encounter Details Date Type Department Care Team (Late st Contact Info) Description 09/28/2021 [facility]ill [facility] [address] [address] Isabelle Wallace NP [address] [place] [address] Anxiety and depression Social History Tobacco Use [...] depression documented in this encounter Care Teams Machine Or Machinery Mechanic Relationship Specialty Start Date End Date [facility] [place] [address] PCP - General Pediatrics 09/22/18 07/05/24 documented as of this encounter
== END 2025-05-24 08:10 | disposition home or self-care (01) ==
LOC: HO.US 08:09
PROVIDERS: PCP Family Medicine; Visit Provider Physician Assistant
DX: R79.89 Other specified abnormal findings of blood chemistry (principal)
CPT/HCPCS: 76700; 76981

== ENCOUNTER → 2025-05-24 08:11 | Outpatient (BNV) | payer OTHER, SELFPAY | PROVIDERS: PCP Family Medicine; Visit Provider Radiology Diagnostic Radiology | DX: R74.01 Elevation of levels of liver transaminase levels (principal) | CPT/HCPCS: 76700 ==